=== PATIENT | female | born 1950 | race Caucasian/White ===

== ENCOUNTER → 2017-04-05 | Outpatient (CLI) | payer OTHER, BC ==
[~2017-04-05] MED LIST: ADVAIR 500-501 EACH IH; ALVESCO6.1 G1 IH; CALCIUM + VITAM1 TAB PO; DIOVAN160 MG PO; MULTIVITAMIN1 UDCAP PO; NASONEX17 GM; NEXIUM PO; PREMARIN0.625 MG PO; PROAIR HFA8.5 GM IH; SINGULAIR PO; VITAMIN C OTC DAILY; VITAMIN E
--- NOTE | ~2017-04-05 | MY29 ---
[facility] A Service of [facility] RADIOLOGY TEXT RESULTS PATIENT: DAYAMI BARAHONA LOCATION: [facility] : 54 UNIT #: [id number] AGE: [address]: aDphne Santana APRN SEX: F ORDER DR: [id number] [facility] [address] [place], [place] [address] [id number] O MR#: [id number] Acc #: [id number] NAME: DAYAMI BARAHONA : 1950 SEX: F STUDY DATE/TIME: 04/05/2017 11:57 UNIT: [facility] ROOM: STUDY DESCRIPTION: MY YOMAIRA SCREENING W/ CAD BILAT Attending Physician: Daphne Santana A.P.R.N. Referring Physician: Daniella Harper M.D. Ordering Physician: Daphne Santana A.P.R.N. Primary Care Physician: Daphne Santana A.P.R.N. MEDICAL IMAGING REPORT This report is preliminary unless electronic signature is present EXAM Digital screening mammogram; 04/05/2017, [facility]. HISTORY 67-year-old woman positive family history, mother age 73/aunt age 80. Prior cyst aspiration. Annual screen. COMPARISON Comparison mammograms date to 06/03/2011, with most recent 02/26/2016. TECHNIQUE Digital imaging of each breast was completed utilizing screening protocol. Review includes FDA-approved CAD device. FINDINGS Breast parenchyma is partially fatty replaced bilaterally. Small lobulated parenchymal opacity projecting mid inner left breast location. This remains stable with benign characteristics. I see no suspicious mass. A small grouping of benign calcifications upper/outer quadrant left breast with no suspicious calcifications. There is no architectural deformity. IMPRESSION Stable benign mammogram. Annual screening recommended. Patients over the age of 40 are entered into a reminder system with target due date for the next mammogram. A result letter will also be sent to the patient. BIRADS: 2 Benign findings. Dictated by... [facility] A Service of [facility] RADIOLOGY TEXT RESULTS PATIENT: DAYAM[facility] BARAHONA [id number] : 54 UNIT #: [id number] AGE: [address]: Daphne Santana APRN SEX: F ORDER DR: Everton Amado M.D. THIS IS AN ELECTRONICALLY VERIFIED REPORT Everton Amado M.D. at 04/06/2017 8:11 AM NORBERT/lamonte TD: 04/05/2017 16:41 JOB #: [id number] MEDICAL IMAGING REPORT Page 1 of 1 COPY
== END | disposition home or self-care (01) ==
LOC: CWCC 11:26
DX: Z12.31 Encounter for screening mammogram for malignant neoplasm of breast (principal); Z80.3 Family history of malignant neoplasm of breast
CPT/HCPCS: G0202